=== PATIENT | male | born 1995 | race Caucasian/White ===

== ENCOUNTER 2018-10-20 19:03 | Emergency (ER) | payer BC, MEDICAID, OTHER ==
[2018-10-20] MEDS ORDERED: Lidocaine 1% 20 ML MDV INJECT ONE (19:04)
[2018-10-20] MEDS ORDERED: Diphtheria,Pertussis(Acell),Tetanus Vaccine 0.5 ML SDV IM ONE (19:19)
--- NOTE | 2018-10-20 19:20 | EDM.PDOC ---
ED HPI GENERAL MEDICAL PROBLEM - General Chief Complaint: Laceration Stated Complaint: cut hand Time Seen by Provider: 10/20/18 19:20 Source of Information: Reports: Patient History Limitations: Reports: No Limitations - History of Present Illness INITIAL COMMENTS - FREE TEXT/NARRATIVE: 23-year-old male who was using a [place] knife to chop wood at approximately 6:45 PM tonight and the [place] knife diverted off of the would and struck the dorsum of his left hand over the second metacarpophalangeal joint area radially. There is a laceration to this area. He has good sensation to the tip of his finger. The bleeding has been controlled with direct pressure. There is a sharp and stinging pain that is rated by him as a 4/10. It is worse with palpation and movement. There were no other injuries. There are no other associated signs or symptoms. There are no other modifying factors. 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 Social & Family History - Tobacco Use Smoking Status *Q: Current Every Day Smoker - Alcohol Use Alcohol Use History: Yes Alcohol Use Frequency: Socially - Living Situation & Occupation Living situation: Reports: Single Occupation: Employed (Works at [employer]) ED ROS GENERAL - Review of Systems Review Of Systems: See Below Constitutional: Reports: No Symptoms HEENT: Reports: No Symptoms Respiratory: Reports: No Symptoms Cardiovascular: Reports: No Symptoms Endocrine: Reports: No Symptoms GI/Abdominal: Reports: No Symptoms : Reports: No Symptoms Musculoskeletal: Reports: Other ([id number]) Skin: Reports: Wound (Laceration to left hand) Neurological: Reports: No Symptoms Hematologic/Lymphatic: Reports: No Symptoms Immunologic: Reports: Other (Greater than 5 years since his last tetanus immunization.) ED EXAM, SKIN/RASH Exam: See Below Exam Limited By: No Limitations General Appearance: Alert, WD/WN, Anxious, Mild Distress Eye Exam: Bilateral Eye: EOMI, Normal Inspection, PERRL Ears: Normal External Exam, Hearing Grossly Normal Nose: Normal Inspection, Normal Mucosa, No Blood Throat/Mouth: Normal Inspection, Normal Lips, Normal Oropharynx, Normal Voice, No Airway Compromise Head: Atraumatic, Normocephalic Neck: Normal Inspection, Supple, Non-Tender, Full Range of Motion Respiratory/Chest: No Respiratory Distress, Lungs Clear, Normal Breath Sounds, No Accessory Muscle Use, Chest Non-Tender Cardiovascular: Normal Peripheral Pulses, Regular Rate, Rhythm, No Murmur Peripheral Pulses: 2+: Radial (L), Radial (R) GI/Abdominal: Normal Bowel Sounds, Soft, Non-Tender, No Mass Back Exam: Normal Inspection, Full Range of Motion Extremities: Normal Range of Motion, No Pedal Edema, Normal Capillary Refill Neurological: Alert, Oriented, CN II-XII Intact, Normal Cognition, No Motor/ Sensory Deficits Skin: Warm, Dry, Normal Color, No Rash, Wound/Incision (On the dorsum of the left hand at the second MCP area. The incision is 4 cm in length) Location, Skin: Upper Extremity, Left (Left hand) Characteristics: Linear ED SKIN PROCEDURES - Laceration/Wound Repair Left Dorsal Hand Appearance: Subcutaneous, Mildly Contaminated, Other (It involves the joint capsule and goes down to the own area) Distal NVT: Neuro & Vascular Intact Anesthetic Type: Local Local Anesthesia - Lidocaine (Xylocaine): 1% Plain Local Anesthetic Volume: Other (9 ml area there was good anesthesia no complications.) Skin Prep: Saline Saline Irrigation (cc's): 600 Exploration/Debridement/Repair: Wound Explored, No Foreign Material Found Closed with: Sutures Lac/Wound length In cm: 4 Suture Size: 4-0 # of Sutures: 7 Suture Type: Nylon, Running (Vertical mattress) Suture Size: 4-0 # of Sutures: 5 (Repair of joint capsule with 5-0 Vicryl times 5 interrupted simple sutures.) Repaired with: Vicryl Sterile Dressing Applied: Nurse Tetanus Status Addressed: Yes (Patient given Tdap.) Complications: No Progress/Comments: After informed verbal consent was obtained from the patient, the wound was anesthetized with 1% lidocaine. I eventually placed 9 mL's in the wound and surrounding tissue with good anesthesia and no complications. The wound was then copiously irrigated with normal saline 600 mL. The capsule of the joint of the second metacarpal phalangeal area was incised radially and there was no tendon involvement. The patient did have full extension in the index finger of his left hand. The joint capsule was reapproximated using 4-0 Vicryl and 5 simple interrupted sutures. The skin was closed using 4-0 nylon running vertical mattress suture 7 sutures. The patient tolerated this procedure well and there were no apparent complications. An appropriate supportive dressing was applied by the nursing staff. The patient was given Keflex 1000 mg by mouth. Course - Vital Signs Last Recorded V/S: Last Vital Signs Temp Pulse 111 H 10/20/18 19:05 Resp 18 10/20/18 19:05 BP 172/75 H 10/20/18 19:05 Pulse Ox 97 10/20/18 19:05 - Orders/Labs/Meds Orders: Active Orders 24 hr Category Date Time Status Vaccines to be Administered [RC] PER UNIT ROUTINE Care 10/20/18 19:19 Active cephALEXin [Keflex] Med 10/20/18 20:05 Once 1,000 mg PO ONETIME ONE Meds: Medications Discontinued Medications Generic Name Dose Route Start Last Admin Trade Name Freq PRN Reason Stop Dose Admin Diphtheria/Tetanus/Acell Pertussis 0.5 ml 10/20/18 19:19 10/20/18 19:32 Adacel IM 10/20/18 19:20 0.5 ml .ONCE ONE Administration - Re-Assessments/Exams Free Text/Narrative Re-Assessment/Exam: 10/20/18 20:17: The wound extended to and involved the joint capsule of the second metacarpal phalangeal joint. This was repaired after it had been copiously irrigated. He was given Keflex and will be kept on Keflex for 7 days. No strenuous use with his left hand for the next 2 weeks. The patient's blood pressure was elevated while here in the emergency department. This could be related to the fact that he drank an energy drink prior to arrival. I did recommend that he follow-up with his primary doctor to have his blood pressure rechecked. The patient was given a tetanus immunization (Tdap). Departure - Departure Time of Disposition: 20:20 Disposition: Home, Self-Care 01 Condition: Good (Improved) Clinical Impression: Elevated blood pressure reading Laceration of left hand Qualifiers: Encounter type: initial encounter Foreign body presence: without foreign body Qualified Code(s): S61.412A - Laceration without foreign body of left hand, initial encounter - Discharge Information Prescriptions: Cephalexin [Keflex] 1,000 mg PO TID 7 Days #42 capsule Instructions: Laceration Care, Adult, [id number] Referrals: PCP,None [Primary Care Provider] - Forms: ED Department Discharge, ED Return to Work/School Form Additional Instructions: Do not get the wound wet for 3 days. After 3 days, you may get the wound wet but do not immerse the wound in water until the sutures are out. Suture removal in 10 days. No work until 10/22/2018. No strenuous use with your left hand for the next 2 weeks. You're blood pressure was elevated in the emergency department today and you should follow-up with your primary doctor to have your blood pressure rechecked. I recommend that you avoid energy drink use in the future. Medication as prescribed (Keflex 500 mg). Take probiotics or eat yogurt daily while you are on the antibiotics. Take Tylenol or ibuprofen as needed for your pain. Back to the emergency department for increasing pain, redness, increased swelling, any signs of infection or any other concerning sign or symptom. You were given a Tdap immunization today to bring your tetanus status up-to-date - My Orders Last 24 Hours: My Active Orders 10/20/18 19:19 Vaccines to be Administered [RC] PER UNIT ROUTINE 10/20/18 20:05 cephALEXin [Keflex] 1,000 mg PO ONETIME ONE - Assessment/Plan Last 24 Hours: My Active Orders 10/20/18 19:19 Vaccines to be Administered [RC] PER UNIT ROUTINE 10/20/18 20:05 cephALEXin [Keflex] 1,000 mg PO ONETIME ONE
[2018-10-20] MEDS ORDERED: Cephalexin 500 MG Cap PO ONE (20:05)
== END 2018-10-20 20:32 | disposition home or self-care (01) ==
LOC: FB.ED 19:03
DX: S61.412A Laceration without foreign body of left hand, initial encounter (principal); R03.0 Elevated blood-pressure reading, without diagnosis of hypertension; F17.210 Nicotine dependence, cigarettes, uncomplicated; Z23 Encounter for immunization; W26.0XXA Contact with knife, initial encounter
CPT/HCPCS: 12042; 90471; 90715; 99282; A9270; J2001; 12013

== ENCOUNTER 2019-05-20 23:19 | Emergency (ER) | payer OTHER ==
[2019-05-20] MEDS ORDERED: LORazepam 2 MG/ML SDV IVPUSH ONE (23:49)
[2019-05-20] MEDS ORDERED: Ketorolac 30 MG/ML SDV IVPUSH ONE (23:49)
--- NOTE | 2019-05-20 23:53 | EDM.PDOC ---
ED HPI GENERAL MEDICAL PROBLEM - General Chief Complaint: General Stated Complaint: elevated BP Time Seen by Provider: 05/20/19 23:30 Source of Information: Reports: Patient History Limitations: Reports: No Limitations - History of Present Illness INITIAL COMMENTS - FREE TEXT/NARRATIVE: Patient presented to the ED via EMS because of a near syncopal episode. He also c/o dyspnea and almost want to pass out followed by perioral and peripheral numbness and tingling. He apparently was worried about something and was hyperventilating. He denies any chest pain or palpitations, no N/V/D cough or cold symptoms or any fever or chills.He has a history of borderline HTN and is not onh any medication. He also c/o headache 5/ which he have once in a while. Treatments SHORE HAND DREDGE OR BARGE: Reports: Other (see below) Other Treatments SHORE HAND DREDGE OR BARGE: IVF - Related Data Allergies Allergy/AdvReac Type Severity Reaction Status Date / Time No Known Allergies Allergy Verified 10/20/18 19:19 Past Medical History - Past Health History Medical/Surgical History: Denies Medical/Surgical History Other Psychiatric History: not diagnosed but treated previously for anxiety - Past Surgical History Other Surgical History Comment: No previous surgeries. Social & Family History - Family History Family Medical History: Noncontributory - Tobacco Use Smoking Status *Q: Never Smoker - Caffeine Use Caffeine Use: Reports: Energy Drinks, Soda Other Caffeine Use: last energy drink was 2 days ago - Recreational Drug Use Recreational Drug Use: No - Living Situation & Occupation Living situation: Reports: Single Occupation: Employed (Works at [employer]) ED ROS GENERAL - Review of Systems Review Of Systems: See Below Constitutional: Reports: No Symptoms HEENT: Reports: No Symptoms Respiratory: Reports: No Symptoms Cardiovascular: Reports: Blood Pressure Problem Endocrine: Reports: No Symptoms GI/Abdominal: Reports: No Symptoms, Nausea Musculoskeletal: Reports: No Symptoms Skin: Reports: No Symptoms Neurological: Reports: No Symptoms Psychiatric: Reports: Anxiety ED EXAM, GENERAL - Physical Exam Exam: See Below Exam Limited By: No Limitations General Appearance: Alert, No Apparent Distress Ears: Normal External Exam, Normal Canal Nose: Normal Inspection, Normal Mucosa Throat/Mouth: Normal Inspection, Normal Lips, Normal Teeth Head: Atraumatic, Normocephalic Neck: Normal Inspection, Supple, Non-Tender, Full Range of Motion Respiratory/Chest: No Respiratory Distress, Lungs Clear, Normal Breath Sounds, No Accessory Muscle Use, Chest Non-Tender Cardiovascular: Normal Peripheral Pulses, Regular Rate, Rhythm, No Edema, No Gallop, No JVD GI/Abdominal: Normal Bowel Sounds, Soft, Non-Tender Back Exam: Normal Inspection, Full Range of Motion Extremities: Normal Inspection, Normal Range of Motion Course - Vital Signs Text/Narrative:: labs reviewed and discussed with patient and verbalized ubnderstanding ativan 1 mg IV toradol 30 mg IV Last Recorded V/S: Last Vital Signs Temp 36.9 C 05/20/19 23:28 Pulse 95 05/21/19 00:15 Resp 18 05/21/19 00:15 BP 143/77 H 05/21/19 00:15 Pulse Ox 97 05/21/19 00:15 - Orders/Labs/Meds Orders: Active Orders 24 hr Category Date Time Status CBC WITH MANUAL DIFF [HEME] Stat Lab 05/20/19 23:49 Ordered TSH ULTRASENSITIVE [CHEM] Stat Lab 05/20/19 23:49 Ordered Labs: Laboratory Tests 05/21/19 05/21/19 Range/Units 00:01 00:01 WBC 8.5 (4.5-12.0) X10-3/uL RBC 5.54 (4.30-5.75) x10(6)uL Hgb 16.4 (13.5-17.8) g/dL Hct 48.0 (30.0-51.3) % MCV 86.7 (80-96) fL MCH 29.7 (27.7-33.6) pg MCHC 34.2 (32.2-35.4) g/dL RDW 13.5 (11.5-15.5) % Plt Count 223 (125-369) X10(3)uL MPV 9.4 (7.4-10.4) fL Sodium 141 (135-145) mmol/L Potassium 4.0 (3.5-5.3) mmol/L Chloride 103 (100-110) mmol/L Carbon Dioxide 29 (21-32) mmol/L BUN 13 (7-18) mg/dL Creatinine 1.0 (0.70-1.30) mg/dL Est Cr Clr Drug Dosing 119.64 mL/min Estimated GFR (MDRD) > 60 (>60) BUN/Creatinine Ratio 13.0 (9-20) Glucose 105 (80-116) mg/dL Calcium 9.0 (8.6-10.2) mg/dL Meds: Medications Discontinued Medications Generic Name Dose Route Start Last Admin Trade Name Cynthia PRN Reason Stop Dose Admin Ketorolac Tromethamine 30 mg 05/20/19 23:49 05/20/19 23:55 Toradol IVPUSH 05/20/19 23:50 30 mg ONETIME ONE Administration Lorazepam 1 mg 05/20/19 23:49 05/20/19 23:56 Ativan IVPUSH 05/20/19 23:50 1 mg ONETIME ONE Administration Departure - Departure Time of Disposition: 00:35 Disposition: Home, Self-Care 01 Condition: Good Clinical Impression: Panic attack, HTN (hypertension) - Discharge Information Instructions: Panic Attack, [id number], Hypertension, Adult, [id number] Referrals: PCP,None [Primary Care Provider] - Forms: ED Department Discharge Additional Instructions: please read discharge instructions on high blood pressure and anxiety low salt low fat diet exercise if your anxiety attack is becoming more frequent follow up with your doctor so can be treated Sepsis Event Note - Evaluation Sepsis Screening Result: No Definite Risk - Focused Exam Vital Signs: Vital Signs Temp Pulse Resp BP Pulse Ox 05/21/19 00:15 95 18 143/77 H 97 05/21/19 00:02 85 18 142/87 H 97 05/20/19 23:28 36.9 C 93 16 160/65 H 97 Date Exam was Performed: 05/21/19 Time Exam was Performed: 00:28 - My Orders Last 24 Hours: My Active Orders 05/20/19 23:49 CBC WITH MANUAL DIFF [HEME] Stat TSH ULTRASENSITIVE [CHEM] Stat - Assessment/Plan Last 24 Hours: My Active Orders 05/20/19 23:49 CBC WITH MANUAL DIFF [HEME] Stat TSH ULTRASENSITIVE [CHEM] Stat
== END 2019-05-21 00:50 | disposition home or self-care (01) ==
LOC: FB.ED 23:19
DX: F41.0 Panic disorder [episodic paroxysmal anxiety] (principal); I10 Essential (primary) hypertension
CPT/HCPCS: 36415; 80048; 84443; 85025; 96374; 96375; 99285-25; J1885; J2060

== ENCOUNTER 2020-02-07 17:30 | Emergency (ER) | payer OTHER ==
--- NOTE | 2020-02-07 17:55 | EDM.PDOC ---
ED HPI GENERAL MEDICAL PROBLEM - General Chief Complaint: Laceration Stated Complaint: foot laceration Time Seen by Provider: 02/07/20 17:45 Source of Information: Reports: Patient History Limitations: Reports: No Limitations - History of Present Illness INITIAL COMMENTS - FREE TEXT/NARRATIVE: c/o lac L foot Pain Score (Numeric/FACES): 3 - Related Data Allergies Allergy/AdvReac Type Severity Reaction Status Date / Time No Known Allergies Allergy Verified 02/07/20 17:42 Home Meds: Home Meds Sertraline [Zoloft] 50 mg PO BEDTIME 02/07/20 [History] cephALEXin [Cephalexin] 500 mg PO BID #10 tablet 02/07/20 [Rx] hydrOXYzine HCL [hydrOXYzine] 25 mg TID PRN 02/07/20 [History] Past Medical History - Past Health History Medical/Surgical History: Denies Medical/Surgical History Other Psychiatric History: not diagnosed but treated previously for anxiety - Past Surgical History Other Surgical History Comment: No previous surgeries. Social & Family History - Family History Family Medical History: No Pertinent Family History - Caffeine Use Caffeine Use: Reports: Energy Drinks, Soda Other Caffeine Use: last energy drink was 2 days ago - Living Situation & Occupation Living situation: Reports: Single Occupation: Employed (Works at [employer]) ED ROS GENERAL - Review of Systems Review Of Systems: See Below Constitutional: Reports: No Symptoms HEENT: Reports: No Symptoms Respiratory: Reports: No Symptoms Cardiovascular: Reports: No Symptoms Endocrine: Reports: No Symptoms GI/Abdominal: Reports: No Symptoms : Reports: No Symptoms Musculoskeletal: Reports: No Symptoms Skin: Reports: Wound Neurological: Reports: No Symptoms Psychiatric: Reports: No Symptoms Hematologic/Lymphatic: Reports: No Symptoms Immunologic: Reports: No Symptoms ED EXAM, SKIN/RASH Exam: See Below Exam Limited By: No Limitations General Appearance: Alert, WD/WN Throat/Mouth: Normal Voice, No Airway Compromise Neck: Normal Inspection, Supple, Non-Tender, Full Range of Motion Respiratory/Chest: No Respiratory Distress Cardiovascular: Regular Rate, Rhythm Neurological: Alert, Oriented, CN II-XII Intact, Normal Cognition, Normal Gait, No Motor/Sensory Deficits Psychiatric: Normal Affect, Normal Mood Skin: Other (5 cm horizontal lac into fat layer on sole of left foot just below the 2nd and 3rd MCT, no tendon exposed, no f.b., good flex/ext toes, LT intact, 1% lido with epi with #30 needle, 1-0 Ethibond Nocona x 6 used for closure with good apposition of margins, tolerated well) Lymphatic: No Adenopathy Course - Vital Signs Last Recorded V/S: Last Vital Signs Temp 36.9 C 02/07/20 17:46 Pulse 84 02/07/20 17:46 Resp 20 02/07/20 17:46 BP 161/79 H 02/07/20 17:46 Pulse Ox 98 02/07/20 17:46 - Re-Assessments/Exams Free Text/Narrative Re-Assessment/Exam: 02/07/20 19:19 not quite on wt bearing surface and should heal well even with limited walking Departure - Departure Time of Disposition: 19:10 Disposition: Home, Self-Care 01 Condition: Good Clinical Impression: Laceration of foot - Discharge Information *PRESCRIPTION DRUG MONITORING PROGRAM REVIEWED*: Not Applicable *COPY OF PRESCRIPTION DRUG MONITORING REPORT IN PATIENT MAYANK: Not Applicable Prescriptions: cephALEXin [Cephalexin] 500 mg PO BID #10 tablet Instructions: Laceration Care, Adult Forms: ED Department Discharge Additional Instructions: Keep clean and dry and covered with a dressing and padding when out of bed. Leave open to the air for one hour in the evening. May leave open to the air overnight after 24 hours. Do not get wet for 24 hours. Do not immerse in water. While infection is unlikely, see a physician the same day for any increase in redness, swelling, warmth, fever, pain or drainage. To decrease risk of infection, take cephalexin 500 mg 1 tab 2 times a day for 5 days. See your physician in 10 days to remove sutures. Limit walking for 10 days. Sepsis Event Note (ED) - Evaluation Sepsis Screening Result: No Definite Risk - Focused Exam Vital Signs: Vital Signs Temp Pulse Resp BP Pulse Ox 02/07/20 17:46 36.9 C 84 20 161/79 H 98
[2020-02-07] MEDS ORDERED: Cephalexin 500 MG Cap PO ONE (19:15)
== END 2020-02-07 19:28 | disposition home or self-care (01) ==
LOC: FB.ED 17:30
DX: S91.312A Laceration without foreign body, left foot, initial encounter (principal); Z79.899 Other long term (current) drug therapy; W26.8XXA Contact with other sharp object(s), not elsewhere classified, initial encounter
CPT/HCPCS: 12002; 99282; A9270

== ENCOUNTER 2020-03-04 23:07 | Emergency (ER) | payer OTHER ==
--- NOTE | 2020-03-05 00:54 | EDM.PDOC ---
ED HPI GENERAL MEDICAL PROBLEM - General Stated Complaint: FALL-HEAD INJURY Time Seen by Provider: 03/04/20 23:30 Source of Information: Reports: Patient History Limitations: Reports: No Limitations - History of Present Illness INITIAL COMMENTS - FREE TEXT/NARRATIVE: c/o injury yesterday AM pt stepped onto his deck barefeet to let out the dogs, he slipped and hit his head on the deck lives alone, does not give a hx c/w LOC says he feels a little foggy today, then he "doesn't feel right", no NICOLE, no diplopia did have emesis several hours after fall ate okay today - Related Data Allergies Allergy/AdvReac Type Severity Reaction Status Date / Time No Known Allergies Allergy Verified 02/07/20 17:42 Home Meds: Home Meds Sertraline [Zoloft] 50 mg PO BEDTIME 02/07/20 [History] cephALEXin [Cephalexin] 500 mg PO BID #10 tablet 02/07/20 [Rx] hydrOXYzine HCL [hydrOXYzine] 25 mg TID PRN 02/07/20 [History] Past Medical History - Past Health History Medical/Surgical History: Denies Medical/Surgical History Cardiovascular History: Reports: Hypertension, Other (See Below) Other Cardiovascular History: borderline HTN Neurological History: Reports: Concussion, Migraines Psychiatric History: Reports: Anxiety, Depression, Panic Attack Other Psychiatric History: not diagnosed but treated previously for anxiety Endocrine/Metabolic History: Reports: Obesity/BMI 30+ - Infectious Disease History Infectious Disease History: Reports: Chicken Pox, Novel Coronavirus - Past Surgical History Other Surgical History Comment: No previous surgeries. Social & Family History - Family History Family Medical History: No Pertinent Family History - Caffeine Use Caffeine Use: Reports: Coffee Other Caffeine Use: last energy drink was 2 days ago - Living Situation & Occupation Living situation: Reports: Single Occupation: Employed (Works at [employer]) ED ROS GENERAL - Review of Systems Review Of Systems: See Below Constitutional: Reports: No Symptoms HEENT: Reports: No Symptoms Respiratory: Reports: No Symptoms Cardiovascular: Reports: No Symptoms Endocrine: Reports: No Symptoms GI/Abdominal: Reports: No Symptoms : Reports: No Symptoms Musculoskeletal: Reports: No Symptoms Skin: Reports: No Symptoms Neurological: Reports: Other (brain feels foggy) Psychiatric: Reports: No Symptoms Hematologic/Lymphatic: Reports: No Symptoms Immunologic: Reports: No Symptoms ED EXAM, HEAD INJURY - Physical Exam Exam: See Below Exam Limited By: No Limitations General Appearance: Alert, WD/WN, No Apparent Distress Head: Atraumatic, Normocephalic Eyes: Bilateral Eye: EOMI, PERRL Nose: Normal Inspection Throat/Mouth: Normal Inspection, Normal Lips, Normal Voice, No Airway Compromise Neck: Non-Tender, Full Range of Motion, Normal Alignment, Normal Inspection, Abnormal Alignment Respiratory: No Respiratory Distress, Lungs Clear, Normal Breath Sounds, No Accessory Muscle Use Cardiovascular: Regular Rate, Rhythm, No Edema, No Murmur GI/Abdominal Exam: Soft, Non-Tender, No Distention Back Exam: Normal Inspection, Full Range of Motion Extremities: Normal Inspection, Normal Range of Motion, Non-Tender, No Pedal Edema Neurologic: No Motor/Sensory Deficits, Normal Mood/Affect, Oriented x 3 Skin: Normal Color, Warm/Dry Course - Orders/Labs/Meds Orders: Active Orders 24 hr Category Date Time Status Head wo Cont [CT] Stat Exams 03/04/20 23:49 Taken - Re-Assessments/Exams Free Text/Narrative Re-Assessment/Exam: 03/05/20 00:50 PE unremarkable 03/05/20 01:[address] neg, pt reassured, did agree to rest today may have a mild concussion, pt sxs fairly nonspecific Departure - Departure Time of Disposition: 01:10 Disposition: Home, Self-Care 01 Condition: Good Clinical Impression: Minor head injury - Discharge Information *PRESCRIPTION DRUG MONITORING PROGRAM REVIEWED*: No *COPY OF PRESCRIPTION DRUG MONITORING REPORT IN PATIENT MAYANK: No Instructions: Head Injury, Adult, [id number] Referrals: PCP,None [Primary Care Provider] - Forms: ED Return to Work/School Form Additional Instructions: Rest today. No work today. Take acetaminophen 500 mg 2 tabs or ibuprofen 200 mg 3 tabs 4 times a day for 2 days. See your doctor in 2 days for further recommendations. - My Orders Last 24 Hours: My Active Orders 03/04/20 23:49 Head wo Cont [CT] Stat - Assessment/Plan Last 24 Hours: My Active Orders 03/04/20 23:49 Head wo Cont [CT] Stat
== END 2020-03-05 01:20 | disposition home or self-care (01) ==
LOC: FB.ED 23:07
DX: S09.90XA Unspecified injury of head, initial encounter (principal); I10 Essential (primary) hypertension; E66.9 Obesity, unspecified; Z68.41 Body mass index [BMI] 40.0-44.9, adult; Z86.16 Personal history of COVID-19; W00.0XXA Fall on same level due to ice and snow, initial encounter
CPT/HCPCS: 70450; 99282; 99283-25